=== PATIENT | male | born 1960 | race Caucasian/White ===

== ENCOUNTER → 2023-10-08 08:06 | Outpatient (REF) | payer MEDICARE, BC, SELFPAY | LOC: HWRCS 08:06 | PROVIDERS: ATTENDING PHYSICIAN Internal Medicine Cardiovascular Disease; FAMILY PHYSICIAN Family Medicine | DX: I48.91 Unspecified atrial fibrillation (principal); I34.0 Nonrheumatic mitral (valve) insufficiency; I34.1 Nonrheumatic mitral (valve) prolapse; Z98.890 Other specified postprocedural states | CPT/HCPCS: 93306 ==